=== PATIENT | female | born 1965 | race Caucasian/White ===

== ENCOUNTER 2016-06-22 13:04 | Emergency (ER) | payer OTHER ==
[2016-06-22 14:17] LABS: BASOPHIL 0.3 % (0-2); EOSINOPHIL 2.3 % (0-5); HCT 39.9 % (37.0-47.0); LYMPHOCYTE 29.8 % (15-48); MCHC 32.6 g/dL (32.0-36.0); MCV 92.1 fL (78.0-100.0); MONOCYTE 8.2 % (0-12); MPV 9.7 fL (6.0-9.5); NEUTROPHIL 59.4 % (41-80); PLT 276 K/uL (150-400); RBC 4.33 M/uL (4.20-5.40); RDW 15.2 % (11.5-14.0); WBC 7.5 K/uL (4.0-10.5)
[2016-06-22 14:29] LABS: CREATININE 0.5 mg/dL (0.5-1.0); POTASSIUM 3.9 mmol/L (3.5-5.1)
== END 2016-06-22 15:40 | disposition home or self-care (01) ==
LOC: FER 13:04
PROVIDERS: Emergency Medicine
DX: K92.1 Melena (principal); E11.9 Type 2 diabetes mellitus without complications; Z87.19 Personal history of other diseases of the digestive system; Z91.030 Bee allergy status; Z79.84 Long term (current) use of oral hypoglycemic drugs
CPT/HCPCS: 36415; 80048; 85025; 99283; J2930